=== PATIENT | female | born 1940 | race Asian ===

== ENCOUNTER 2020-01-20 23:59 | Emergency (ER) | payer OTHER ==
[~2020-01-20] VITALS: Ht 149.9 cm; Wt 50.0 kg
[~2020-01-20 23:59] MED LIST: AMLO-257 PO; MECL-134 PO; METF-910 PO; SIMV10TA97 PO; VALS40TA4 PO
[2020-01-21] MEDS ORDERED: SPIR25 PO ×2 (00:14)
[2020-01-21] MEDS ORDERED: METO25 PO (00:14)
[2020-01-21] MEDS ORDERED: VALS160T2 PO (00:14)
[2020-01-21] MEDS ORDERED: LOVA20TA73 PO (00:14)
[2020-01-21 02:28] LABS: COVID AG,FIA SOURCE NASOPHARYNGEAL
[2020-01-21 02:28] LABS: BASOPHILS % (AUTO) 0.5 % (0.0-2.0); EOSINOPHILS % (AUTO) 1.6 % (1.0-6.0); HEMATOCRIT 37.3 % (36-46); HEMOGLOBIN 12.7 g/dL (12.0-16.0); LYMPHOCYTES # (AUTO) 3.2 K/uL (1.0-4.8); LYMPHOCYTES % (AUTO) 41.3 % (22.0-44.0); MEAN CORPUSCULAR HEMOGLOBIN 31.5 pg (26.0-34.0); MEAN CORPUSCULAR HGB CONC 34.1 G/dL (31.0-37.0); MEAN CORPUSCULAR VOLUME 93 fL (80-100); MONOCYTES # (AUTO) 0.7 K/uL (0.1-1.0); MONOCYTES % (AUTO) 8.6 % (2.0-9.0); NEUTROPHILS # (AUTO) 3.7 K/uL (1.8-7.7); PLATELET COUNT (AUTO) 252 K/uL (150-450); RED BLOOD CELL COUNT(AUTO) 4.03 MIL/uL (4.00-5.20); RED CELL DISTRIBUTION WIDTH 14.1 % (11.5-14.5)
[2020-01-21 02:52] LABS: CALCIUM, TOTAL 10.3 mg/dL (8.8-10.5); CREATININE 1.12 mg/dL (0.60-1.30)
[2020-01-21 03:05] LABS: ALBUMIN 3.8 g/dL (3.4-5.0); BILIRUBIN,TOTAL 0.3 mg/dL (0.1-1.0); TOTAL PROTEIN, SERUM 8.2 g/dL (6.4-8.2)
[2020-01-21 03:57] VITALS: BP 158/88
== END 2020-01-21 04:17 | disposition home or self-care (01) ==
LOC: EMS 01-21 00:03
DX: M54.2 Cervicalgia (principal); R06.02 Shortness of breath; E11.9 Type 2 diabetes mellitus without complications; I10 Essential (primary) hypertension; Z20.828 Contact with and (suspected) exposure to other viral communicable diseases; Z79.84 Long term (current) use of oral hypoglycemic drugs
CPT/HCPCS: 87040; 87426; 93005; 36415-L1; 36415-TC; 71045-TC

== ENCOUNTER 2021-06-27 15:27 | Emergency (ER) | payer OTHER ==
[~2021-06-27] VITALS: Ht 162.6 cm; Wt 54.5 kg
[~2021-06-27 15:27] MED LIST changes: -AMLO-257 PO; +LOVA20TA73 PO; -MECL-134 PO; +METO25 PO; -SIMV10TA97 PO; +SPIR-37 PO; +VALS160T2 PO; -VALS40TA4 PO
[2021-06-27] MEDS ORDERED: ACETAMINOPHEN 500 MG TABLET PO ONE (17:45)
[2021-06-27 17:58] LABS: BASOPHILS % (AUTO) 0.1 % (0.0-2.0); EOSINOPHILS % (AUTO) 0 % (1.0-6.0); HEMATOCRIT 35.9 % (36-46); HEMOGLOBIN 11.9 g/dL (12.0-16.0); LYMPHOCYTES # (AUTO) 0.7 K/uL (1.0-4.8); LYMPHOCYTES % (AUTO) 6.6 % (22.0-44.0); MEAN CORPUSCULAR HEMOGLOBIN 29.6 pg (26.0-34.0); MEAN CORPUSCULAR HGB CONC 33.3 G/dL (31.0-37.0); MEAN CORPUSCULAR VOLUME 89 fL (80-100); MONOCYTES # (AUTO) 0.4 K/uL (0.1-1.0); MONOCYTES % (AUTO) 3.5 % (2.0-9.0); NEUTROPHILS # (AUTO) 9.1 K/uL (1.8-7.7); PLATELET COUNT (AUTO) 236 K/uL (150-450); RED BLOOD CELL COUNT(AUTO) 4.03 MIL/uL (4.00-5.20); RED CELL DISTRIBUTION WIDTH 13.6 % (11.5-14.5)
[2021-06-27 18:07] LABS: NEUTROPHILS % (AUTO) 89.8 % (40.0-70.0)
[2021-06-27 18:16] LABS: CALCIUM, TOTAL 9.6 mg/dL (8.8-10.5); CREATININE 1.01 mg/dL (0.60-1.30); POTASSIUM 4.1 mmol/L (3.5-5.1)
[2021-06-27 18:22] LABS: ALBUMIN 3.7 g/dL (3.4-5.0); BILIRUBIN,TOTAL 0.4 mg/dL (0.1-1.0); TOTAL PROTEIN, SERUM 7.7 g/dL (6.4-8.2)
[2021-06-27] MEDS ORDERED: ACET-66 PO (19:52)
[2021-06-27 20:22] VITALS: BP 145/63
== END 2021-06-27 20:41 | disposition home or self-care (01) ==
LOC: EMS 15:42
DX: S22.41XA Multiple fractures of ribs, right side, initial encounter for closed fracture (principal); E11.65 Type 2 diabetes mellitus with hyperglycemia; I10 Essential (primary) hypertension; Z79.84 Long term (current) use of oral hypoglycemic drugs; W01.0XXA Fall on same level from slipping, tripping and stumbling without subsequent striking against object, initial encounter; Y93.89 Activity, other specified; Y92.89 Other specified places as the place of occurrence of the external cause; Y99.8 Other external cause status
CPT/HCPCS: 71101; 80053; 84484; 85025; 99284

== ENCOUNTER 2021-07-18 09:56 | Emergency (ER) | payer OTHER ==
[~2021-07-18] VITALS: Ht 154.9 cm; Wt 54.5 kg
[~2021-07-18 09:56] MED LIST changes: +ACET-66 PO
[2021-07-18 12:40] LABS: BASOPHILS % (AUTO) 0.7 % (0.0-2.0); EOSINOPHILS % (AUTO) 1.7 % (1.0-6.0); HEMATOCRIT 29.2 % (36-46); HEMOGLOBIN 9.7 g/dL (12.0-16.0); LYMPHOCYTES # (AUTO) 1.5 K/uL (1.0-4.8); LYMPHOCYTES % (AUTO) 23.8 % (22.0-44.0); MEAN CORPUSCULAR HGB CONC 33.3 G/dL (31.0-37.0); MEAN CORPUSCULAR VOLUME 90 fL (80-100); MONOCYTES # (AUTO) 0.6 K/uL (0.1-1.0); MONOCYTES % (AUTO) 9.9 % (2.0-9.0); NEUTROPHILS # (AUTO) 3.9 K/uL (1.8-7.7); NEUTROPHILS % (AUTO) 63.9 % (40.0-70.0); PLATELET COUNT (AUTO) 281 K/uL (150-450); RED BLOOD CELL COUNT(AUTO) 3.24 MIL/uL (4.00-5.20); RED CELL DISTRIBUTION WIDTH 14.7 % (11.5-14.5)
[2021-07-18 12:48] LABS: CALCIUM, TOTAL 9.1 mg/dL (8.8-10.5); CREATININE 0.91 mg/dL (0.60-1.30); POTASSIUM 4.5 mmol/L (3.5-5.1)
[2021-07-18 12:53] LABS: ALBUMIN 3.3 g/dL (3.4-5.0); BILIRUBIN,TOTAL 0.4 mg/dL (0.1-1.0); TOTAL PROTEIN, SERUM 6.9 g/dL (6.4-8.2)
[2021-07-18 16:35] VITALS: BP 156/70
== END 2021-07-18 18:11 | disposition home or self-care (01) ==
LOC: EMS 09:56
DX: S22.41XA Multiple fractures of ribs, right side, initial encounter for closed fracture (principal); R07.81 Pleurodynia; E11.9 Type 2 diabetes mellitus without complications; E78.00 Pure hypercholesterolemia, unspecified; I10 Essential (primary) hypertension; G20 Parkinson's disease; W19.XXXA Unspecified fall, initial encounter; Y93.89 Activity, other specified; Y92.89 Other specified places as the place of occurrence of the external cause; Y99.8 Other external cause status
CPT/HCPCS: 71250; 80053; 82962; 85025; 99284

== ENCOUNTER 2021-12-03 07:33 | Emergency (ER) | payer OTHER ==
[~2021-12-03] VITALS: Ht 152.4 cm; Wt 45.5 kg
[2021-12-03 07:51] LABS: GLUCOMETER DEV NAME(LOC) ERT.5; GLUCOSE,POINT OF CARE 130 MG/DL (70-110)
[2021-12-03 08:34] LABS: BASOPHILS % (AUTO) 0.6 % (0.0-2.0); HEMATOCRIT 35.1 % (36-46); HEMOGLOBIN 11.6 g/dL (12.0-16.0); LYMPHOCYTES # (AUTO) 1.4 K/uL (1.0-4.8); LYMPHOCYTES % (AUTO) 16.8 % (22.0-44.0); MEAN CORPUSCULAR HEMOGLOBIN 29.8 pg (26.0-34.0); MEAN CORPUSCULAR HGB CONC 33.2 G/dL (31.0-37.0); MEAN CORPUSCULAR VOLUME 90 fL (80-100); MONOCYTES # (AUTO) 0.7 K/uL (0.1-1.0); MONOCYTES % (AUTO) 7.6 % (2.0-9.0); NEUTROPHILS # (AUTO) 6.3 K/uL (1.8-7.7); RED CELL DISTRIBUTION WIDTH 15.5 % (11.5-14.5)
[2021-12-03 08:47] LABS: CALCIUM, TOTAL 9.1 mg/dL (8.8-10.5); CREATININE 0.92 mg/dL (0.60-1.30); POTASSIUM 3.7 mmol/L (3.5-5.1)
[2021-12-03 08:49] LABS: ALBUMIN 3.5 g/dL (3.4-5.0); BILIRUBIN,TOTAL 0.4 mg/dL (0.1-1.0); TOTAL PROTEIN, SERUM 7.2 g/dL (6.4-8.2)
[2021-12-03 09:21] LABS: PLATELET COUNT (AUTO) 180 K/uL (150-450); PLATELET MORPHOLOGY COMMENT LARGE PLTS PRESENT
[2021-12-03] MEDS ORDERED: CIPROFLOXACIN HCL 250 MG TABLET PO ONE (10:00)
[2021-12-03] MEDS ORDERED: DIPHENOXYLATE/ATROP 2.5-0.025 MG TABLET PO ONE (10:00)
[2021-12-03 11:33] LABS: APPEARANCE,URINE HAZY (CLEAR); BILIRUBIN,URINE NEGATIVE (NEGATIVE); GLUCOSE, URINE (UA) NEGATIVE (NEGATIVE); LEUKOCYTE ESTERASE ,URINE LARGE (NEGATIVE); NITRATE,URINE POSITIVE (NEGATIVE); OCCULT BLOOD,URINE SMALL (NEGATIVE); PH,URINE 5.5 (5.0-8.0); PROTEIN,URINE 30-70 mg/dL (NEGATIVE); SPECIFIC GRAVITIY, URINE 1.022 (1.003-1.030); UROBILINOGEN,URINE <=1.0 mg/dL (<=1.0)
[2021-12-03 11:50] LABS: BACTERIA,URINE Many /HPF (None Seen); CALCIUM OXALATE CRYSTALS,UR Moderate /LPF (None Seen)
[2021-12-03] MEDS ORDERED: CIPR-279 PO (12:35)
[2021-12-03 13:15] VITALS: BP 135/59
[2021-12-03] MEDS ORDERED: METF-446 PO (18:20)
[2021-12-03] MEDS ORDERED: CHOL100062 PO (18:20)
[2021-12-03] MEDS ORDERED: OS500 PO (18:20)
[2021-12-03] MEDS ORDERED: LINA5TAB PO (18:20)
[2021-12-03] MEDS ORDERED: EZET10TA57 PO (18:20)
[2021-12-03] MEDS ORDERED: CARB1TAB42 PO (18:20)
== END 2021-12-03 13:18 | disposition home or self-care (01) ==
LOC: EMS 07:38
DX: N39.0 Urinary tract infection, site not specified (principal); E11.9 Type 2 diabetes mellitus without complications; I10 Essential (primary) hypertension; E78.00 Pure hypercholesterolemia, unspecified
CPT/HCPCS: 71045; 80053; 81001; 82962; 85025; 87086; 93005; 99285; 36415-L1; 36415-TC

== ENCOUNTER 2021-12-03 18:02 | Emergency (ER) | payer OTHER ==
[~2021-12-03] VITALS: Ht 152.4 cm; Wt 41.8 kg
[~2021-12-03 18:02] MED LIST changes: +CIPR-279 PO
[2021-12-03] MEDS ORDERED: 0.9% SODIUM CHLORIDE 10 ML SYRINGE IVP PRN (18:15)
[2021-12-03] MEDS ORDERED: SODIUM CHLORIDE 0.9% 1,250 ML IV ONE (18:15)
[2021-12-03] MEDS ORDERED: METF-446 PO (18:20)
[2021-12-03] MEDS ORDERED: OS500 PO (18:20)
[2021-12-03] MEDS ORDERED: CARB1TAB42 PO (18:20)
[2021-12-03] MEDS ORDERED: CHOL100062 PO (18:20)
[2021-12-03] MEDS ORDERED: LINA5TAB PO (18:20)
[2021-12-03] MEDS ORDERED: EZET10TA57 PO (18:20)
[2021-12-03] MEDS ORDERED: ACETAMINOPHEN 1000 MG/ISO-OSM 100 ML IV ONE (18:30)
[2021-12-03 18:43] LABS: BASOPHILS % (AUTO) 0.3 % (0.0-2.0); EOSINOPHILS % (AUTO) 0.1 % (1.0-6.0); HEMATOCRIT 32.9 % (36-46); HEMOGLOBIN 10.9 g/dL (12.0-16.0); LYMPHOCYTES # (AUTO) 0.4 K/uL (1.0-4.8); LYMPHOCYTES % (AUTO) 7.3 % (22.0-44.0); MEAN CORPUSCULAR HEMOGLOBIN 29.8 pg (26.0-34.0); MEAN CORPUSCULAR HGB CONC 33.2 G/dL (31.0-37.0); MEAN CORPUSCULAR VOLUME 90 fL (80-100); MONOCYTES # (AUTO) 0.2 K/uL (0.1-1.0); MONOCYTES % (AUTO) 3.8 % (2.0-9.0); NEUTROPHILS # (AUTO) 4.5 K/uL (1.8-7.7); PLATELET COUNT (AUTO) 183 K/uL (150-450); RED BLOOD CELL COUNT(AUTO) 3.67 MIL/uL (4.00-5.20); RED CELL DISTRIBUTION WIDTH 15.5 % (11.5-14.5)
[2021-12-03 18:44] LABS: NEUTROPHILS % (AUTO) 88.5 % (40.0-70.0)
[2021-12-03 18:52] LABS: CALCIUM, TOTAL 8.5 mg/dL (8.8-10.5); CREATININE 1.01 mg/dL (0.60-1.30); POTASSIUM 3.4 mmol/L (3.5-5.1)
[2021-12-03] MEDS ORDERED: ONDANSETRON HCL 4 MG/2 ML VIAL IVP ONE (19:00)
[2021-12-03] MEDS ORDERED: CefTRIAXone 1 GM/DEXTROSE 50 ML IV ONE (19:00)
[2021-12-03 19:01] LABS: APPEARANCE,URINE HAZY (CLEAR); BILIRUBIN,URINE NEGATIVE (NEGATIVE); GLUCOSE, URINE (UA) NEGATIVE (NEGATIVE); LEUKOCYTE ESTERASE ,URINE LARGE (NEGATIVE); NITRATE,URINE POSITIVE (NEGATIVE); OCCULT BLOOD,URINE MODERATE (NEGATIVE); PROTEIN,URINE TRACE mg/dL (NEGATIVE); SPECIFIC GRAVITIY, URINE 1.014 (1.003-1.030); UROBILINOGEN,URINE <=1.0 mg/dL (<=1.0)
[2021-12-03 19:02] LABS: PROTHROMBIN TIME 10.9 SEC (9.4-11.6)
[2021-12-03 19:08] LABS: ALBUMIN 3.4 g/dL (3.4-5.0); BILIRUBIN,TOTAL 0.5 mg/dL (0.1-1.0)
[2021-12-03 19:36] LABS: BACTERIA,URINE Many /HPF (None Seen); SQUAMOUS EPITHELIAL CELL,UR None Seen /LPF (None Seen)
[2021-12-03 21:01] LABS: COVID AG,FIA SOURCE NASAL SWAB
[2021-12-03] MEDS ORDERED: RINGERS SOLUTION,LACTATED 1,000 ML IV SCH (21:30)
[2021-12-03 21:49] LABS: INFLUENZA TYPE A NEGATIVE FOR TYPE A (NEGATIVE); INFLUENZA TYPE B NEGATIVE FOR TYPE B (NEGATIVE)
[2021-12-03 22:35] VITALS: BP 125/61
[2021-12-04] MEDS ORDERED: CHOLECALCIFEROL (VIT D3) 1,000 UNITS [25 MCG] TABLET PO SCH (09:00)
[2021-12-04] MEDS ORDERED: CARBIDOPA/LEVODOPA 50-200 MG ER TABLET PO SCH (09:00)
[2021-12-04] MEDS ORDERED: METOPROLOL TARTRATE 25 MG TABLET PO SCH (09:00)
[2021-12-04] MEDS ORDERED: SPIRONOLACTONE 25 MG TABLET PO SCH (09:00)
[2021-12-04] MEDS ORDERED: VALSARTAN 160 MG TABLET PO SCH (09:00)
[2021-12-04] MEDS ORDERED: EZETIMIBE 10 MG TABLET PO SCH (09:00)
[2021-12-04] MEDS ORDERED: CefTRIAXone 1 GM/DEXTROSE 50 ML IV SCH (18:00)
[2021-12-04] MEDS ORDERED: LOVASTATIN 20 MG TABLET PO SCH (21:00)
== END 2021-12-03 23:49 | disposition short-term general hospital (02) ==
LOC: EMS 18:02
DX: N39.0 Urinary tract infection, site not specified (principal); R53.83 Other fatigue; E11.9 Type 2 diabetes mellitus without complications; E78.00 Pure hypercholesterolemia, unspecified; I10 Essential (primary) hypertension
CPT/HCPCS: 99285; 96365; 71045; 96375; 87426; 80053; 81001; 82550; 83605; 83880; 84484; 85025; 85610; 85730; 87040; 87804; 36415; 87086; 93005; 96368; 84145; J0696; J2405; J7030; J0131; 51702

== ENCOUNTER 2022-05-25 14:47 | Emergency (ER) | payer OTHER ==
[~2022-05-25] VITALS: Ht 160 cm; Wt 56.8 kg
[~2022-05-25 14:47] MED LIST changes: +CARB1TAB42 PO; +CHOL100062 PO; +EZET10TA57 PO; +LINA5TAB PO; +METF-446 PO; -METF-910 PO; +OS500 PO
[2022-05-25] MEDS ORDERED: SODIUM CHLORIDE 0.9% 1,000 ML IV ONE (15:15)
[2022-05-25] MEDS ORDERED: INSULIN REGULAR, HUMAN 100 UNITS/ML IVP ONE (15:15)
[2022-05-25 15:48] LABS: BASOPHILS % (AUTO) 0.8 % (0.0-2.0); EOSINOPHILS % (AUTO) 0.4 % (1.0-6.0); HEMATOCRIT 37.7 % (36-46); HEMOGLOBIN 12.6 g/dL (12.0-16.0); LYMPHOCYTES # (AUTO) 1.3 K/uL (1.0-4.8); LYMPHOCYTES % (AUTO) 23.4 % (22.0-44.0); MEAN CORPUSCULAR HGB CONC 33.3 G/dL (31.0-37.0); MEAN CORPUSCULAR VOLUME 90 fL (80-100); MONOCYTES # (AUTO) 0.4 K/uL (0.1-1.0); MONOCYTES % (AUTO) 7.2 % (2.0-9.0); NEUTROPHILS # (AUTO) 3.8 K/uL (1.8-7.7); NEUTROPHILS % (AUTO) 68.2 % (40.0-70.0); PLATELET COUNT (AUTO) 215 K/uL (150-450); RED BLOOD CELL COUNT(AUTO) 4.19 MIL/uL (4.00-5.20); RED CELL DISTRIBUTION WIDTH 15.2 % (11.5-14.5)
[2022-05-25 15:58] LABS: INR 0.9 (0.9-1.1); PROTHROMBIN TIME 10.1 SEC (9.4-11.6)
[2022-05-25] MEDS ORDERED: HydrALAZINE HCL 20 MG/ML VIAL IVP ONE (16:15)
[2022-05-25 16:22] LABS: APPEARANCE,URINE CLEAR (CLEAR); BILIRUBIN,URINE NEGATIVE (NEGATIVE); GLUCOSE, URINE (UA) >=1000 mg/dL (NEGATIVE); KETONES,URINE NEGATIVE (NEGATIVE); LEUKOCYTE ESTERASE ,URINE NEGATIVE (NEGATIVE); NITRATE,URINE NEGATIVE (NEGATIVE); OCCULT BLOOD,URINE TRACE (NEGATIVE); PROTEIN,URINE 30-70 mg/dL (NEGATIVE); SPECIFIC GRAVITIY, URINE 1.026 (1.003-1.030); UROBILINOGEN,URINE <=1.0 mg/dL (<=1.0)
[2022-05-25 16:23] LABS: CALCIUM, TOTAL 8.7 mg/dL (8.8-10.5); CREATININE 0.97 mg/dL (0.60-1.30); POTASSIUM 3.4 mmol/L (3.5-5.1)
[2022-05-25 16:28] LABS: BILIRUBIN,TOTAL 0.3 mg/dL (0.1-1.0); TOTAL PROTEIN, SERUM 7.1 g/dL (6.4-8.2)
[2022-05-25 16:34] LABS: BACTERIA,URINE None Seen /HPF (None Seen); RBC,URINE 0-2 /HPF (0-2); SQUAMOUS EPITHELIAL CELL,UR Rare /LPF (None Seen); WBC,URINE 0-2 /HPF (0-5)
[2022-05-25] MEDS ORDERED: ONDANSETRON HCL 4 MG/2 ML VIAL IVP ONE (17:15)
[2022-05-25] MEDS ORDERED: MORPHINE SULFATE 2 MG/ML SYRINGE IVP ONE (17:15)
[2022-05-25 18:30] VITALS: BP 171/65
[2022-05-25 18:35] LABS: COVID AG,FIA SOURCE NASAL SWAB
== END 2022-05-25 20:40 | disposition short-term general hospital (02) ==
LOC: EMS 14:56
DX: S00.83XA Contusion of other part of head, initial encounter (principal); S80.01XA Contusion of right knee, initial encounter; S80.02XA Contusion of left knee, initial encounter; R53.1 Weakness; G20 Parkinson's disease; E11.65 Type 2 diabetes mellitus with hyperglycemia; E78.00 Pure hypercholesterolemia, unspecified; I10 Essential (primary) hypertension; Z20.822 Contact with and (suspected) exposure to COVID-19; W01.0XXA Fall on same level from slipping, tripping and stumbling without subsequent striking against object, initial encounter; Y93.89 Activity, other specified; Y92.89 Other specified places as the place of occurrence of the external cause; Y99.8 Other external cause status
CPT/HCPCS: 99285; 70450; 96374; 96375; 71045; 96361; 87426; 80053; 81001; 82962; 83690; 84484; 85025; 85610; 36415; 73502; 73562 ×2; 70486; 72125; 93005; J0360; J1815; J2270; J2405; J7030; 81003

== ENCOUNTER 2022-12-02 06:12 | Emergency (ER) | payer OTHER ==
[~2022-12-02] VITALS: Ht 152.4 cm; Wt 54.5 kg
[~2022-12-02 06:12] MED LIST changes: -ACET-66 PO; -CIPR-279 PO
[2022-12-02 06:51] LABS: BASOPHILS % (AUTO) 0.5 % (0.0-2.0); HEMATOCRIT 34.5 % (36-46); HEMOGLOBIN 11.4 g/dL (12.0-16.0); LYMPHOCYTES % (AUTO) 29.3 % (22.0-44.0); MEAN CORPUSCULAR HEMOGLOBIN 30.2 pg (26.0-34.0); MEAN CORPUSCULAR HGB CONC 33.2 G/dL (31.0-37.0); MEAN CORPUSCULAR VOLUME 91 fL (80-100); MONOCYTES # (AUTO) 0.5 K/uL (0.1-1.0); MONOCYTES % (AUTO) 7.4 % (2.0-9.0); NEUTROPHILS # (AUTO) 4.2 K/uL (1.8-7.7); NEUTROPHILS % (AUTO) 61.8 % (40.0-70.0); PLATELET COUNT (AUTO) 228 K/uL (150-450); RED BLOOD CELL COUNT(AUTO) 3.78 MIL/uL (4.00-5.20); RED CELL DISTRIBUTION WIDTH 14.3 % (11.5-14.5); WHITE BLOOD COUNT (AUTO) 6.8 K/uL (4.5-11.0)
[2022-12-02 06:57] LABS: CALCIUM, TOTAL 9.3 mg/dL (8.8-10.5); CREATININE 1.1 mg/dL (0.60-1.30); POTASSIUM 4.5 mmol/L (3.5-5.1)
[2022-12-02 07:02] LABS: BILIRUBIN,TOTAL 0.4 mg/dL (0.1-1.0); TOTAL PROTEIN, SERUM 6.9 g/dL (6.4-8.2)
[2022-12-02 07:08] LABS: TROPONIN I-HIGH SENSITIVITY 13 ng/L (<51)
[2022-12-02] MEDS ORDERED: ACETAMINOPHEN 500 MG TABLET PO ONE (08:30)
[2022-12-02] MEDS ORDERED: ACET-2247 PO (09:47)
[2022-12-02 11:01] LABS: GLUCOMETER DEV NAME(LOC) ERT.5; GLUCOSE,POINT OF CARE 130 MG/DL (70-110)
[2022-12-02 12:56] VITALS: BP 150/69; PULSE 51; RESP 17; TEMP 97.9
== END 2022-12-02 13:35 | disposition home or self-care (01) ==
LOC: EMS 06:13
DX: S22.42XA Multiple fractures of ribs, left side, initial encounter for closed fracture (principal); R29.6 Repeated falls; G20.A1 Parkinson's disease without dyskinesia, without mention of fluctuations; R53.1 Weakness; E11.9 Type 2 diabetes mellitus without complications; E78.00 Pure hypercholesterolemia, unspecified; I10 Essential (primary) hypertension; W19.XXXA Unspecified fall, initial encounter; Y93.89 Activity, other specified; Y92.89 Other specified places as the place of occurrence of the external cause; Y99.8 Other external cause status
CPT/HCPCS: 71045; 71250; 80053; 82962; 84484; 85025; 99284; 36415-L1; 36415-TC

== ENCOUNTER 2024-11-14 14:34 | Emergency (ER) | payer OTHER ==
[~2024-11-14] VITALS: Ht 152.4 cm; Wt 45.0 kg
[~2024-11-14 14:34] MED LIST changes: +ACET-2247 PO; +AMLO-257 PO; +CARB1TAB35 PO; -CARB1TAB42 PO; +INSU100I94 SQ; -LINA5TAB PO; +LISI-892 PO; -LOVA20TA73 PO; +LOVA40TA2 PO; +METF-1211 PO; -METO25 PO; +PIOG30TA70 PO; +SENN-376 PO; -VALS160T2 PO
[2024-11-14 15:08] VITALS: TEMP 98.1
[2024-11-14 16:33] LABS: PLATELET COUNT (AUTO) 276 K/uL (150-450); RED BLOOD CELL COUNT(AUTO) 3.92 MIL/uL (4.00-5.20); RED CELL DISTRIBUTION WIDTH 15.9 % (11.5-14.5); WHITE BLOOD COUNT (AUTO) 6.8 K/uL (4.5-11.0)
[2024-11-14 16:39] LABS: CALCIUM, TOTAL 8.8 mg/dL (8.8-10.5); CREATININE 1.70 mg/dL (0.60-1.30); GLOMERULAR FILTR. RATE CALC 28 mL/min (>60); SODIUM SERUM 133 mmol/L (136-145); UREA NITROGEN, BLOOD 34 mg/dL (7-18)
[2024-11-14 16:41] LABS: GLUCOSE,RANDOM 417 mg/dL (70-110)
[2024-11-14 16:46] LABS: CREATINE KINASE, TOTAL ONLY 297 U/L (26-192)
[2024-11-14 16:50] LABS: TROPONIN I-HIGH SENSITIVITY 15 ng/L (<51)
[2024-11-14] MEDS ORDERED: AMLO-258 PO (18:21)
[2024-11-14] MEDS: INSULIN REGULAR, HUMAN 100 UNITS/ML IVP ONE (18:26)
[2024-11-14 18:30] LABS: GLUCOMETER DEV NAME(LOC) ERT.7; GLUCOSE,POINT OF CARE 285 MG/DL (70-110)
[2024-11-14] MEDS: LIDOCAINE 5% TRANSDERMAL PATCH TD ONE (18:35)
[2024-11-14] MEDS: SODIUM CHLORIDE 0.9% 500 ML IV ONE (18:35)
[2024-11-14 19:46] VITALS: BP 152/54; PULSE 65; RESP 18; O2SAT 100
[2024-11-14 19:55] LABS: TROPONIN I-HIGH SENSITIVITY 15 ng/L (<51)
== END 2024-11-14 20:48 | disposition short-term general hospital (02) ==
LOC: EMS 14:34
DX: R53.1 Weakness (principal); R42 Dizziness and giddiness; E11.22 Type 2 diabetes mellitus with diabetic chronic kidney disease; E11.65 Type 2 diabetes mellitus with hyperglycemia; R55 Syncope and collapse; N17.9 Acute kidney failure, unspecified; E78.00 Pure hypercholesterolemia, unspecified; F02.80 Dementia in other diseases classified elsewhere, unspecified severity, without behavioral disturbance, psychotic disturbance, mood disturbance, and anxiety; I12.9 Hypertensive chronic kidney disease with stage 1 through stage 4 chronic kidney disease, or unspecified chronic kidney disease; N18.9 Chronic kidney disease, unspecified; Z79.4 Long term (current) use of insulin; Z79.899 Other long term (current) drug therapy; W19.XXXA Unspecified fall, initial encounter
CPT/HCPCS: 99285; 96360; 71045; 80048; 82550; 82962; 83880; 84484; 85025; 36415; 72070; 93005; J7040